=== PATIENT | male | born 1965 | race Caucasian/White ===

== ENCOUNTER 2019-10-06 13:17 | Emergency (ER) | payer MEDICAID, OTHER ==
--- NOTE | 2019-10-06 13:38 | ED Physician Documentation ---
History of Present Illness - Stated complaint Stated Complaint: MALE /SIDE PX - Chief complaint Chief Complaint: General - History obtained from History obtained from: Patient - History of Present Illness Timing: Last night - Additonal information Additional information: This is a 54-year-old man who presents with complaints that he is having pain in his lower back that begins across the glutes bilaterally and up into the flank bilaterally. He rates it about a 3-4 out of 10 but he has some rust colored urine and so became concerned that he might have a urinary tract infection. He is also concerned that this could be a reaction to TDF drugs that she is he is was prescribed for years for HIV that he contracted as a during a blood transfusion. He rates the pain at a 3-4 out of 10 says it is been there off and on for the past 12 to 14 hours, waxing and waning. He feels very fatigued but has been active running errands all morning long. Yesterday he did carry to 5 gallon buckets loaded with water 1 in each hand about 600 yards from the spigot up to his trailer. He woke up in the middle of the night with his kneecaps feeling very cold that subsequently resolved. Patient also has a history of kidney stones but said they do not feel anything like this. He has no nausea or vomiting and has had no fever. He was started on a statin about 2 months ago. He says he has multiple lipomas in his fat feels very "turgid" across his back and in the lower cervical region of his back is preventing his full range of motion around the neck. His arms and legs feel very heavy but he does not have any muscle other muscle aches. He also reports very poor dentition related to the TDF drugs his teeth are basically falling out and he is got gingivitis he is concerned that he will develop a worse infection related to that. Review of Systems Constitutional: denies: Fever Eyes: denies: Decreased vision Ears: denies: Ear pain Nose: denies: Congestion Throat: reports: Sore throat Cardiac: denies: Chest pain / pressure, Palpitations Respiratory: denies: Dyspnea, Cough GI: denies: Abdominal Pain, Nausea, Vomiting : reports: Other (Rust colored urine). denies: Dysuria Skin: reports: Rash (Starting back over the summer and he has not been able to get anybody at the [facility] to take it seriously. It does seem to be getting better) Musculoskeletal: reports: Back pain, Joint swelling (Has intermittent swelling of the joints of his hands). 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) Endocrine: reports: Other (He is taking metformin and has been off Victoza since March) Immunocompromised: reports: HIV/AIDS PD PAST MEDICAL HISTORY - Past Medical History Cardiovascular: None Endocrine/Autoimmune: Type 2 diabetes : Kidney stones Other Past Medical History: HIV+ - Past Surgical History Past Surgical History: No - Present Medications Home Medications: Ambulatory Orders Medication Instructions Recorded Confirmed Clindamycin Phosphate [Cleocin T] 60 ml TP BID PRN #1 bottle 10/14/13 Efavirenz [Sustiva] 600 mg PO DAILY 10/14/13 10/14/13 Emtricitabine/Tenofovir [Truvada 1 each PO DAILY 10/14/13 10/14/13 200 mg-300 mg Tablet] Emtricitabine/Tenofovir [Truvada 1 each PO DAILY #30 tablet 10/14/13 200 mg-300 mg Tablet] Hydrocodone/Acetaminophen 1 - 2 each PO Q6H PRN #10 tablet 10/06/19 [Hydrocodon-Acetaminophen 5-325] Ondansetron Odt [Zofran] 4 mg TL Q6H PRN #10 tablet 10/06/19 - Allergies Allergies/Adverse Reactions: Allergies Allergy/AdvReac Type Severity Reaction Status Date / Time codeine Allergy Intermediate sleepy Verified 10/06/19 13:20 NSAIDS (Non-Steroidal AdvReac Intermediate Rash Verified 10/06/19 13:20 Anti-Inflamma Penicillins AdvReac Intermediate Rash Verified 10/06/19 13:20 - Social History Does the pt smoke?: No Smoking Status: Never smoker Does the pt drink ETOH?: No Does the pt have substance abuse?: No - Immunizations Immunizations are current?: Yes PD ED PE NORMAL - Vitals Vital signs reviewed: Yes - General General: Alert and oriented X 3, No acute distress, Well developed/nourished, Other (He looks like he does not feel well. He is clearly frustrated and seems on the brink of tears several times during our conversation.) - HEENT HEENT: PERRL, Moist mucous membranes, Other (No scleral icterus). No: Dentition benign (His dentition is very poor with multiple caps on his teeth but also broken teeth and inflammation of the gums. No jaw swelling and no pain with palpation along the mandible.) - Neck Neck: No adenopathy - Cardiac Cardiac: RRR, No murmur, Strong equal pulses - Respiratory Respiratory: No respiratory distress, Clear bilaterally - Abdomen Abdomen: Normal bowel sounds, Soft, No organomegaly, Other (He is obese) - Derm Derm: Normal color, Other (Multiple small erythematous to purple discolored lesions scattered over his arms and the back of his hands some of these actually have small scabs on the top of the surface of them.). No: Warm and dry (He feels a little slightly clammy) - Extremities Extremities: No edema, Other (No swelling of the joints noted in his hands) - Neuro Neuro: Alert and oriented X 3, solar technician 2-12 intact, No motor deficit, No sensory deficit, Normal speech - Psych Psych: Other (He is on the brink of tears several times.) Results - Vitals Vitals: Vital Signs - 24 hr 10/06/19 10/06/19 10/06/19 13:21 15:29 17:35 Temperature 37.1 C Heart Rate 100 88 87 Respiratory 18 20 18 Rate Blood Pressure 125/61 120/71 120/72 O2 Saturation 94 95 98 Oxygen O2 Source Room air - Labs Labs: Laboratory Tests 10/06/19 10/06/19 10/06/19 13:30 14:44 14:44 WBC 8.8 RBC 5.08 Hgb 15.2 Hct 45.9 MCV 90.4 MCH 29.9 MCHC 33.1 RDW 13.6 Plt Count 217 MPV 8.4 Neut # (Auto) 4.9 Lymph # (Auto) 2.8 [place] # (Auto) 0.7 Eos # (Auto) 0.4 Baso # (Auto) 0.1 Absolute Nucleated RBC 0.00 Nucleated RBC % 0.0 Sodium 138 Potassium 3.6 Chloride 104 Carbon Dioxide 24 Anion Gap 10.0 BUN 13 Creatinine 0.9 Estimated GFR (MDRD) 88 L Glucose 186 H Calcium 8.7 Total Bilirubin 0.7 AST 27 ALT 24 Alkaline Phosphatase 79 Total Creatine Kinase 147 Total Protein 7.3 Albumin 4.3 Globulin 3.0 Albumin/Globulin Ratio 1.4 Lipase 31 Urine Color BROWN Urine Clarity CLOUDY Urine pH 5.5 Ur Specific Sullivan >=1.030 H Urine Protein 30 H Urine Glucose (UA) NEGATIVE Urine Ketones NEGATIVE Urine Occult Blood LARGE H Urine Nitrite NEGATIVE Urine Bilirubin NEGATIVE Urine Urobilinogen 0.2 (NORMAL) Ur Leukocyte Esterase NEGATIVE Urine RBC TNTC H Urine WBC 0-3 Ur Squamous Epith Cells NONE SEEN Urine Crystals 11-25 Ca Oxalate Amorphous Sediment Moderate Urine Bacteria None Seen Ur Microscopic Review INDICATED Urine Culture Comments NOT INDICATED - Rads (name of study) CT abd/pelvis Radiology: See rad report (5x7mm stone prox L ureter with min hydronephrosis) PD MEDICAL DECISION MAKING - ED course Complexity details: reviewed results, re-evaluated patient, d/w patient ED course: Patient had an IV started he said he was allergic to nonsteroidals so we cannot use Toradol and he drove himself here so I cannot give him narcotics. Given a liter of fluids that his pain was down to about a 2 out of 10. His renal functions normal white blood cell counts normal. His urinalysis had too numerous to count red blood cells. CT scan was ordered and he has a 5 x 7 mm stone in the left proximal ureter with minimal hydroureter nephrosis. Will attempt to contact urology for referral. Outpatient management is likely appropriate with minimal pain and not significant hydronephrosis. I was unable to expeditiously contact urologist so I have talked to the patient and he is agreeable for discharge with #[facility]. He will be provided a prescription for hydrocodone and Zofran. He has ibuprofen at home and even though it causes a rash it seems to work well for his pain and he says that he takes it sporadically for his tooth pain anyway. He still declined Toradol here stating that the pain was much better after the IV fluids. He should drink lots of water and contact [facility] after the holiday. Return if his symptoms are worsening with intractable pain, fever, vomiting or not urinating. Departure - Departure Disposition: 01 Home, Self Care Clinical Impression: Left ureteral stone Back pain Qualifiers: Back pain location: low back pain Chronicity: acute Back pain laterality: bilateral Sciatica presence: without sciatica Qualified Code(s): M54.5 - Low back pain Condition: Good Instructions: ED Stone Renal W Colic Follow-Up: [facility] [Provider Group] Prescriptions: Hydrocodone/Acetaminophen [Hydrocodon-Acetaminophen 5-325] 1 - 2 each PO Q6H PRN #10 tablet PRN Reason: pain Ondansetron Odt [Zofran] 4 mg TL Q6H PRN #10 tablet PRN Reason: Nausea / Vomiting Comments: Take the ibuprofen if it does not cause a rash at home up to 4 tablets every 8 hours with food. Make sure that you are drinking plenty of water. Take the Zofran if needed for nausea or vomiting. Have given you a prescription for a few hydrocodone tablets to use if needed for additional pain. This could make you sleepy so do not drive or operate machinery. You have the number for the [facility] and should contact them after the 's holiday for follow-up. Return for reevaluation if you have increasing pain, develop fever, are not urinating or are vomiting and cannot keep anything down.
[2019-10-06 13:41] LABS: BILIRUBIN,URINE NEGATIVE (NEGATIVE); GLUCOSE, URINE (UA) NEGATIVE (NEGATIVE); KETONES,URINE (UA) NEGATIVE (NEGATIVE); LEUKOCYTE ESTERASE, URINE NEGATIVE (NEGATIVE); NITRITE,URINE NEGATIVE (NEGATIVE); OCCULT BLOOD,URINE LARGE (NEGATIVE); PH,URINE 5.5 PH (5.0-7.5); PROTEIN,URINE 30 mg/dL (NEGATIVE); UROBILINOGEN,URINE 0.2 (NORMAL) E.U./dL (NORMAL)
[2019-10-06 13:43] LABS: CLARITY,URINE CLOUDY (CLEAR)
[2019-10-06 13:53] LABS: AMORPHOUS SEDIMENT,UR Moderate /LPF; BACTERIA,URINE None Seen /HPF (None Seen); CRYSTALS,URINE 11-25 Ca Oxalate /LPF; RBC,URINE TNTC /HPF (0-5); SQUAMOUS EPITHELIAL CELL,UR NONE SEEN (<= Few)
[2019-10-06] MEDS ORDERED: SODIUM CHLORIDE 0.9% 1,000 ML IV ONE (14:16)
[2019-10-06 14:48] LABS: BASOPHILS # (AUTO) 0.1 10^3/uL (0.0-0.1); BASOPHILS % (AUTO) 0.6 %; EOSINOPHILS # (AUTO) 0.4 10^3/uL (0.0-0.7); EOSINOPHILS % (AUTO) 4.1 %; HGB - HEMOGLOBIN 15.2 g/dL (14.0-18.0); LYMPHOCYTES # (AUTO) 2.8 10^3/uL (1.5-3.5); LYMPHOCYTES % (AUTO) 31.9 %; MEAN CORPUSCULAR HEMOGLOBIN 29.9 pg (27.0-31.0); MEAN CORPUSCULAR HGB CONC 33.1 g/dL (32.0-36.0); MEAN CORPUSCULAR VOLUME 90.4 fL (80.0-94.0); MEAN PLATELET VOLUME 8.4 fL (7.4-11.4); MONOCYTES # (AUTO) 0.7 10^3/uL (0.0-1.0); MONOCYTES % (AUTO) 7.5 %; NEUTROPHILS # (AUTO) 4.9 10^3/uL (1.5-6.6); NEUTROPHILS % (AUTO) 55.4 %; PLT - PLATELET COUNT 217 10^3/uL (130-450); RED BLOOD COUNT 5.08 10^6/uL (4.70-6.10); RED CELL DISTRIBUTION WIDTH 13.6 % (12.0-15.0); WHITE BLOOD COUNT 8.8 x10^3/uL (4.8-10.8)
[2019-10-06 15:00] LABS: ALBUMIN 4.3 g/dL (3.2-5.5); ALBUMIN/GLOBULIN RATIO 1.4 (1.0-2.2); BILIRUBIN,TOTAL 0.7 mg/dL (0.2-1.0); CALCIUM 8.7 mg/dL (8.5-10.3); CREATININE 0.9 mg/dL (0.6-1.2); TOTAL PROTEIN 7.3 g/dL (6.7-8.2)
--- NOTE | 2019-10-06 15:59 | CT Report ---
Reason: hematuria; back pain Procedure Date: 10/06/2019 Accession Number: [id number] / [id number] Procedure: CT - Abdomen/Pelvis WO CPT Code: Final Report FULL RESULT: EXAM: CT ABDOMEN AND PELVIS (CT KUB) EXAM DATE: 10/06/2019 03:37 PM. CLINICAL HISTORY: Hematuria; back pain. COMPARISONS: None. TECHNIQUE: Routine axial helical CT imaging was performed through the abdomen and pelvis without IV contrast. Reconstructions: Coronal and sagittal. In accordance with CT protocol optimization, one or more of the following dose reduction techniques were utilized for this exam: automated exposure control, adjustment of mA and/or KV based on patient size, or use of iterative reconstructive technique. FINDINGS: Lung Bases: Unremarkable. Right Kidney/Ureter: No stones, hydronephrosis, or hydroureter. No perinephric fat stranding. Left Kidney/Ureter: At the ureteropelvic junction is a 0.5 cm caliber 0.7 cm long calculus with no to minimal upstream hydroureteronephrosis. Compared to the contralateral side there is no significantly increased perinephric fat stranding associated with the finding. Other Solid Organs: Noncontrast images of the solid organs are grossly unremarkable. Gallbladder/Bile Ducts: Unremarkable. Peritoneal Cavity: No free fluid, free air or henrik adenopathy. Bowel is grossly unremarkable. Pelvic Organs: No bladder stones or wall thickening. Noncontrast images of the visualized pelvic organs are unremarkable. Vasculature: Unremarkable. Other: None. 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 RADIA
[2019-10-06 17:35] VITALS: BP 120/72
== END 2019-10-06 17:40 | disposition home or self-care (01) ==
LOC: ED 13:17
DX: N13.2 Hydronephrosis with renal and ureteral calculous obstruction (principal); M54.5 Low back pain; B20 Human immunodeficiency virus [HIV] disease; G62.0 Drug-induced polyneuropathy; E11.9 Type 2 diabetes mellitus without complications; Z79.84 Long term (current) use of oral hypoglycemic drugs
CPT/HCPCS: 36415; 74176; 80053; 81001; 81003; 82550; 83690; 85025; 87086; 96360; 99284

== ENCOUNTER 2019-10-29 12:12 | Outpatient (CLI) | payer OTHER ==
[2019-10-29 12:40] LABS: BASOPHILS % (AUTO) 0.4 %; EOSINOPHILS # (AUTO) 0.7 10^3/uL (0.0-0.7); EOSINOPHILS % (AUTO) 7.1 %; HGB - HEMOGLOBIN 16.2 g/dL (14.0-18.0); LYMPHOCYTES # (AUTO) 2.8 10^3/uL (1.5-3.5); MEAN CORPUSCULAR HEMOGLOBIN 29.7 pg (27.0-31.0); MEAN CORPUSCULAR HGB CONC 32.9 g/dL (32.0-36.0); MEAN CORPUSCULAR VOLUME 90.3 fL (80.0-94.0); MEAN PLATELET VOLUME 8.8 fL (7.4-11.4); MONOCYTES # (AUTO) 0.8 10^3/uL (0.0-1.0); MONOCYTES % (AUTO) 7.8 %; NEUTROPHILS # (AUTO) 5.4 10^3/uL (1.5-6.6); NEUTROPHILS % (AUTO) 55.2 %; PLT - PLATELET COUNT 237 10^3/uL (130-450); RED BLOOD COUNT 5.45 10^6/uL (4.70-6.10); RED CELL DISTRIBUTION WIDTH 13.8 % (12.0-15.0); WHITE BLOOD COUNT 9.8 x10^3/uL (4.8-10.8)
[2019-10-29 13:11] LABS: ALBUMIN 4.4 g/dL (3.2-5.5); ALBUMIN/GLOBULIN RATIO 1.3 (1.0-2.2); BILIRUBIN,TOTAL 0.6 mg/dL (0.2-1.0); CALCIUM 9.4 mg/dL (8.5-10.3); TOTAL PROTEIN 7.7 g/dL (6.7-8.2)
== END 2019-10-29 12:13 | disposition home or self-care (01) ==
LOC: LAB 12:12
PROVIDERS: ATTEND Physician Assistant Medical
DX: Z82.1 Family history of blindness and visual loss (principal)
CPT/HCPCS: 36415; 80053; 85025

== ENCOUNTER 2019-12-05 10:49 | Outpatient (CLI) | payer OTHER ==
--- NOTE | 2019-12-07 01:47 | CT Report ---
Reason: KIDNEY STONE Procedure Date: 12/05/2019 Accession Number: [id number] / [id number] Procedure: CT - Abdomen/Pelvis WO CPT Code: Final Report FULL RESULT: EXAM: CT ABDOMEN AND PELVIS (CT KUB) EXAM DATE: 12/05/2019 11:08 AM. CLINICAL HISTORY: Left lower back pain. History of renal calculi. Assess for kidney stone. COMPARISONS: CT 10/06/2019 3:36 PM. TECHNIQUE: Routine axial helical CT imaging was performed through the abdomen and pelvis without IV contrast. Reconstructions: Coronal and sagittal. In accordance with CT protocol optimization, one or more of the following dose reduction techniques were utilized for this exam: automated exposure control, adjustment of mA and/or KV based on patient size, or use of iterative reconstructive technique. FINDINGS: Lung Bases: Unremarkable. Right Kidney/Ureter: Nonobstructive 2 mm right lower pole renal calculus. No hydronephrosis or ureteral calculus. No perinephric fat stranding. Left Kidney/Ureter: No calculi, hydronephrosis, or hydroureter. Interval passage of previously seen left ureteral calculus. No perinephric fat stranding. Other Solid Organs: Noncontrast images of the solid organs are grossly unremarkable. Gallbladder/Bile Ducts: Tiny gallstone. No evidence of acute cholecystitis. No biliary dilation. Peritoneal Cavity: No free fluid, free air or henrik adenopathy. Bowel is grossly unremarkable. Appendix is normal. Pelvic Organs: No bladder stones or wall thickening. Noncontrast images of the visualized pelvic organs are unremarkable. Vasculature: Unremarkable noncontrast CT. Other: Stable osseous structures. No acute bony findings. IMPRESSION: 1. Punctate nonobstructive right lower pole renal calculus. No hydronephrosis or ureteral calculus. Interval passage of previous left ureteral calculus. 2. Tiny gallstone. No evidence of acute cholecystitis. RADIA
== END 2019-12-05 10:50 | disposition home or self-care (01) ==
LOC: DI 10:49
PROVIDERS: ATTEND Student in an Organized Health Care Education/Training Program
DX: N20.0 Calculus of kidney (principal); K80.20 Calculus of gallbladder without cholecystitis without obstruction
CPT/HCPCS: 74176

== ENCOUNTER 2021-03-07 22:18 | Emergency (ER) | payer OTHER ==
--- OUTSIDE RECORDS SUMMARY | 2021-03-07 22:22 | EXTERNAL MEDICAL SUMMARY RPT | Continuity of Care Document ---
:1965 Demographics Phone Unavailable Preferred Language Unknown Marital Status Unknown Sabianism Affiliation Unknown Race Unknown Ethnic Group Unknown Author Organization [facility] Address [address] [place] [address] Phone Care Team Providers Name Role Phone PA-C Unavailable Unavailable Allergies Encounters Medications date description facility 20210113 [facility] [id number] [facility] [id number] [id number] TABS [facility] 20210113 [facility] Problems date description facility 20210113 Unspecified gingival and periodontal [facility] disease [facility] [id number] Total score? [facility] [phone] Tobacco use and exposure [facility] [phone] Periapical abscess without sinus [facility] [phone] Infection of tooth [facility] [phone] Health-related behavior [facility] [phone] Gingival disease [facility] [phone] Former smoker [facility] 20210113 Exercise [facility] 20210113 Disorder of gingiva and edentulous [facility] & alveolar ridge, unspecified Ancillary Se rvices Cristian [phone] Details of drug misuse behavior [facility] [phone] Alcohol use [facility] [phone] Acute apical periodontitis of pulpal [facility] Results Vital Signs date measurement value source [id number] weight_standard 270 lb [id number] weight_metric 122.47 kg [id number] temperature_standard 99.1 F 20210113 temperature_metric 37.28 C 20210113 respiration_rate 16 /min 20210113 height_standard 71.5 in 20210113 height_metric 181.61 cm 20210113 heart_rate 92 /min 20210113 BP_systolic 128 mm[Hg] 20210113 BP_diastolic 76 mm[Hg] 20210113 BMI 37.27 kg/m2
--- OUTSIDE RECORDS SUMMARY | 2021-03-07 22:53 | EXTERNAL MEDICAL SUMMARY RPT | Continuity of Care Document ---
:1965 Demographics Phone Unavailable Preferred Language Unknown Marital Status Unknown Denominational Affiliation Unknown Race Unknown Ethnic Group Unknown Author Organization [facility] Address [address] [place] [address] Phone Care Team Providers Name Role Phone PA-C Unavailable Unavailable Allergies Encounters Medications date description facility 20210113 [facility] [phone] [facility] 20210113 [id number] TABS [facility] 20210113 [facility] Problems date description facility 20210113 Unspecified gingival and periodontal [facility] ad[facility] [id number] Total score? [facility] adan [phone] Tobacco use and exposure [facility] adan [phone] Periapical abscess without sinus [facility] ad[facility] [phone] Infection of tooth [facility] [phone] Health-related behavior [facility] [phone] Gingival disease [facility] [phone] Former smoker [facility] 20210113 Exercise [facility] adan 20210113 Disorder of gingiva and edentulous [facility] & alveolar ridge, unspecified Ancillary Se rvices Cristian [phone] Details of drug misuse behavior [facility] [phone] Alcohol use [facility] [phone] Acute apical periodontitis of pulpal [facility] Results Vital Signs date measurement value source [id number] weight_standard 270 lb [id number] weight_metric 122.47 kg 76199942 temperature_standard 99.1 F 20210113 temperature_metric 37.28 C 20210113 respiration_rate 16 /min 20210113 height_standard 71.5 in 20210113 height_metric 181.61 cm 20210113 heart_rate 92 /min 20210113 BP_systolic 128 mm[Hg] 20210113 BP_diastolic 76 mm[Hg] 20210113 BMI 37.27 kg/m2
[2021-03-08] MEDS ORDERED: KETOROLAC 30 MG/ML VIAL IM STA (00:03)
[2021-03-08] MEDS ORDERED: TETANUS/DIPHTHERIA/PERTUSSIS 0.5 ML SYRINGE IM ONE (00:03)
[2021-03-08] MEDS ORDERED: BACITRACIN ZINC OINT 1 PACKET TOP STA (00:03)
[2021-03-08] MEDS ORDERED: AMOX/CLAV 875 MG/125 MG TABLET PO STA (00:04)
--- NOTE | 2021-03-08 00:06 | ED Physician Documentation ---
History of Present Illness - Stated complaint Stated Complaint: RT HAND DOG BITE - Chief complaint Chief Complaint: Laceration - History obtained from History obtained from: Patient - Additonal information Additional information: 55-year-old man presents status post dog bite to the right hand occurring today. Is able to confirm that the dog is vaccinated. Unsure of his last tetanus. Review of Systems Skin: reports: Bite / sting PD PAST MEDICAL HISTORY - Past Medical History Past Medical History: Yes Cardiovascular: None Endocrine/Autoimmune: Type 2 diabetes : Kidney stones - Past Surgical History Past Surgical History: No - Present Medications Home Medications: Ambulatory Orders Medication Instructions Recorded Confirmed Efavirenz [Sustiva] 600 mg PO DAILY 10/14/13 03/07/21 Atorvastatin [Lipitor] 20 mg PO DAILY 03/07/21 03/07/21 Bictegrav/Emtricit/Tenofov Ala 1 tab PO DAILY 03/07/21 03/07/21 [Biktarvy 50-200-25 mg Tablet] Clindamycin Phosphate [Cleocin T] 60 ml TP BID PRN 03/07/21 03/07/21 Sertraline [Zoloft] 25 mg PO DAILY 03/07/21 03/07/21 buPROPion [Wellbutrin Sr] 100 mg PO DAILY 03/07/21 03/07/21 metFORMIN [Glucophage] 500 mg PO TID 03/07/21 03/07/21 Amox/Clav 875/125 [Augmentin 1 tablet PO Q12H 10 Days #20 tablet 03/08/21 875/125 Tab] Ketorolac [Toradol] 10 mg PO Q6H PRN #15 tablet 03/08/21 - Allergies Allergies/Adverse Reactions: Allergies Allergy/AdvReac Type Severity Reaction Status Date / Time codeine Allergy Intermediate sleepy Verified 10/06/19 13:20 NSAIDS (Non-Steroidal AdvReac Intermediate Rash Verified 10/06/19 13:20 Anti-Inflamma Penicillins AdvReac Intermediate Rash Verified 10/06/19 13:20 - Social History Does the pt smoke?: No Smoking Status: Never smoker Does the pt drink ETOH?: No Does the pt have substance abuse?: No - Immunizations Immunizations are current?: No Immunizations: TDAP >10years/unknown - POLST Patient has POLST: No PD ED PE NORMAL - Vitals Vital signs reviewed: Yes - General General: Alert and oriented X 3, No acute distress, Well developed/nourished - HEENT HEENT: Atraumatic, PERRL, EOMI - Derm Derm: Normal color, Warm and dry, Other (7 puncture hooper to the right dorsum and ventral hand. Range of motion intact 2+ radial pulse. Normal sensation and capillary refill. No tendon involvement.) Results - Vitals Vitals: Vital Signs - 24 hr 03/07/21 03/07/21 03/08/21 22:39 23:33 00:19 Temperature 36.9 C 36.9 C 36.9 C Heart Rate 110 H 109 H 94 Respiratory 18 18 18 Rate Blood Pressure 132/77 H 133/72 H 137/73 H O2 Saturation 95 96 97 Oxygen O2 Source Room air PD MEDICAL DECISION MAKING - ED course ED course: 55-year-old man presented status post dog bite. Antibiotics prescribed. I discussed with him in regards to his penicillin allergy and he states that he usually can tolerate amoxicillin fine, therefore I will give him a regular prescription. Strict return precautions given. Patient should follow-up for wound check with his primary doctor. Departure - Departure Disposition: 01 Home, Self Care Clinical Impression: Dog bite Condition: Good Instructions: ED Wound Care Prescriptions: Amox/Clav 875/125 [Augmentin 875/125 Tab] 1 tablet PO Q12H 10 Days #20 tablet Ketorolac [Toradol] 10 mg PO Q6H PRN #15 tablet PRN Reason: Pain Comments: You were seen in the emergency department for dog bite. It is very important that you take your antibiotics as prescribed and do not miss a dose, especially early on. Monitor for any signs of infection and if it looks like it is getting worse then come back immediately. Change the dressing at least once daily and try to keep the hand elevated to reduce swelling. Apply ice for 20 minutes every hour as needed to reduce swelling. Discharge Date/Time: 03/08/21 00:59
[2021-03-08 00:20] VITALS: BP 137/73
== END 2021-03-08 00:59 | disposition home or self-care (01) ==
LOC: ED 22:18
DX: S61.451A Open bite of right hand, initial encounter (principal); W54.0XXA Bitten by dog, initial encounter
CPT/HCPCS: 90471; 90715; 96372; 99283; A9270

== ENCOUNTER 2021-10-19 11:13 | Emergency (ER) | payer OTHER ==
[2021-10-19 11:47] LABS: BASOPHILS # (AUTO) 0.1 10^3/uL (0.0-0.1); BASOPHILS % (AUTO) 0.5 %; EOSINOPHILS # (AUTO) 0.3 10^3/uL (0.0-0.7); LYMPHOCYTES # (AUTO) 3.2 10^3/uL (1.5-3.5); LYMPHOCYTES % (AUTO) 35.4 %; MEAN CORPUSCULAR HEMOGLOBIN 29.4 pg (27.0-31.0); MEAN CORPUSCULAR VOLUME 86.4 fL (80.0-94.0); MEAN PLATELET VOLUME 8.9 fL (7.4-11.4); MONOCYTES # (AUTO) 0.7 10^3/uL (0.0-1.0); MONOCYTES % (AUTO) 7.1 %; NEUTROPHILS # (AUTO) 4.9 10^3/uL (1.5-6.6); NEUTROPHILS % (AUTO) 53.8 %; PLT - PLATELET COUNT 212 10^3/uL (130-450); RED BLOOD COUNT 5.44 10^6/uL (4.70-6.10); RED CELL DISTRIBUTION WIDTH 13.2 % (12.0-15.0); WHITE BLOOD COUNT 9.2 x10^3/uL (4.8-10.8)
--- NOTE | 2021-10-19 12:00 | ED Physician Documentation ---
History of Present Illness - Stated complaint Stated Complaint: RT FOOT WOUND - Chief complaint Chief Complaint: Ext Problem - Additonal information Additional information: 56-year-old male who carries a history of HIV disease as well as diabetes presents to the emergency department for evaluation of a wound on the top of his right foot. On 02 October 2021 he developed an abrasion after scraping it under a metal bracket for a propane tank. Initially he did not think much of the wound but over time and ulceration has formed. He was seen at a local walk-in clinic who advised him to come to the ER for evaluation of possible osteomyelitis. He denies any fevers, no foot swelling. He has no previous history of sores on his feet. He has not received any antibiotics. With regards to the patient's HIV, it is well controlled on Biktarvy. He reports an undetectable viral load. Patient is insulin dependent typically reports blood sugars between 150 and 300. He is also reporting to this provider that recently he has begun to be told he has problems with his liver and kidney function. Review of Systems Constitutional: denies: Chills Eyes: reports: Reviewed and negative Ears: reports: Reviewed and negative Nose: reports: Reviewed and negative Throat: reports: Reviewed and negative Cardiac: reports: Reviewed and negative Respiratory: reports: Reviewed and negative GI: reports: Reviewed and negative : reports: Reviewed and negative Skin: reports: Lesions Musculoskeletal: reports: Reviewed and negative PD PAST MEDICAL HISTORY - Past Medical History Cardiovascular: None Endocrine/Autoimmune: Type 2 diabetes : Kidney stones - Past Surgical History Past Surgical History: No - Present Medications Home Medications: Ambulatory Orders Medication Instructions Recorded Confirmed Efavirenz [Sustiva] 600 mg PO DAILY 10/14/13 03/07/21 Atorvastatin [Lipitor] 20 mg PO DAILY 03/07/21 03/07/21 Bictegrav/Emtricit/Tenofov Ala 1 tab PO DAILY 03/07/21 03/07/21 [Biktarvy 50-200-25 mg Tablet] Clindamycin Phosphate [Cleocin T] 60 ml TP BID PRN 03/07/21 03/07/21 Sertraline [Zoloft] 25 mg PO DAILY 03/07/21 03/07/21 buPROPion [Wellbutrin Sr] 100 mg PO DAILY 03/07/21 03/07/21 metFORMIN [Glucophage] 500 mg PO TID 03/07/21 03/07/21 Amox/Clav 875/125 [Augmentin 1 tablet PO Q12H 10 Days #20 tablet 03/08/21 875/125 Tab] Ketorolac [Toradol] 10 mg PO Q6H PRN #15 tablet 03/08/21 Mupirocin 2% Oint [Bactroban 2% 1 applic TOP BID #22 gm 10/19/21 Oint] cephALEXin [Keflex] 500 mg PO Q6H #28 cap 10/19/21 - Allergies Allergies/Adverse Reactions: Allergies Allergy/AdvReac Type Severity Reaction Status Date / Time codeine Allergy Intermediate sleepy Verified 10/19/21 11:30 NSAIDS (Non-Steroidal AdvReac Intermediate Rash Verified 10/19/21 11:30 Anti-Inflamma Penicillins AdvReac Intermediate Rash Verified 10/19/21 11:30 - Social History Does the pt smoke?: No Smoking Status: Never smoker Does the pt drink ETOH?: No Does the pt have substance abuse?: No - Immunizations Immunizations are current?: No Immunizations: TDAP >10years/unknown - POLST Patient has POLST: No PD ED PE EXPANDED - General General: Alert, No acute distress, Well developed/nourished - Neck Neck: Supple w/out meningeal sx. No: Adenopathy - Cardiac Cardiac: Regular Rate, Radial strong equal, Pedal strong equal, Cap refill < 2 sec. No: Murmur Present - Respiratory Respiratory: Clear to ausultation tanner. No: Distress, Labored - Abdomen Abdomen: Normal Bowel sounds. No: Tender to palpation - Derm Derm: Other (Irregularly shaped ulceration over the MCP joint of the right great toe measuring 2 cm in greatest diameter. Yellow eschar overlying the wound bed. No surrounding erythema. Scant amount of serous drainage. Normal range of motion of the great toe at the MCP joint. Minimal to pain. 2+ DP pulse) - Extremities Extremities: Normal, Right foot (urrigeular ulceration over MCP joint right great toe. 2+ DP pulse. brisk cap refill. no swelling or surrounding erythema) Results - Vitals Vitals: Vital Signs - 24 hr 10/19/21 10/19/21 11:25 12:11 Temperature 37.7 C 37.0 C Heart Rate 96 89 Respiratory 19 18 Rate Blood Pressure 149/94 H 127/80 O2 Saturation 99 96 Oxygen O2 Source Room air - Labs Labs: Laboratory Tests 10/19/21 10/19/21 11:40 11:40 WBC 9.2 RBC 5.44 Hgb 16.0 Hct 47.0 MCV 86.4 MCH 29.4 MCHC 34.0 RDW 13.2 Plt Count 212 MPV 8.9 Neut # (Auto) 4.9 Lymph # (Auto) 3.2 Carson # (Auto) 0.7 Eos # (Auto) 0.3 Baso # (Auto) 0.1 Absolute Nucleated RBC 0.00 Nucleated RBC % 0.0 Sodium 142 Potassium 4.0 Chloride 103 Carbon Dioxide 27 Anion Gap 12.0 BUN 20 Creatinine 1.0 Estimated GFR (MDRD) 77 L Glucose 218 H Calcium 9.4 Total Bilirubin 0.7 AST 25 ALT 29 Alkaline Phosphatase 86 C-Reactive Protein 1.0 Total Protein 7.4 Albumin 4.1 Globulin 3.3 Albumin/Globulin Ratio 1.2 Lipase 29 - Rads (name of study) right foot Radiology: Final report received (No visualized erosions.) PD MEDICAL DECISION MAKING - ED course Complexity details: reviewed results, re-evaluated patient, d/w patient ED course: 56-year-old male presents emergency department with a ulceration on the dorsum of his right foot over the MCP joint that developed after scraping it on a piece of metal 10/02/2021. He has been applying Silvadene to the wound and has a yellow eschar. Minimal surrounding erythema. X-ray does not show findings of bony erosion. Screening labs showed no leukocytosis and his CRP is not elevated. My suspicion for osteomyelitis is lower at this time, though he is certainly at risk for development of osteomyelitis. Patient however will require referral to wound therapy and/or podiatry. This wa s discussed with him at length. I am prescribing a short course of cephalexin. I am also recommending that he soak the ulcer in a Betadine solution for 10 minutes once a day, gently cleanse it with a washcloth and apply mupirocin ointment. Emergent return precautions were discussed for failure of the wound to heal or worsening symptoms. Departure - Departure Disposition: 01 Home, Self Care Clinical Impression: Diabetic foot ulcer Qualifiers: Diabetic foot ulcer location: toe Diabetes mellitus type: type 2 Laterality: right Non-pressure ulcer stage: with fat layer exposed Qualified Code(s): E11.621 - Type 2 diabetes mellitus with foot ulcer; L97.512 - Non-pressure chronic ulcer of other part of right foot with fat layer exposed Condition: Stable Record reviewed to determine appropriate education?: Yes Instructions: Diabetic Foot Ulcer Dc Prescriptions: Mupirocin 2% Oint [Bactroban 2% Oint] 1 applic TOP BID #22 gm cephALEXin [Keflex] 500 mg PO Q6H #28 cap Comments: Marcelo you are seen in the emergency department today for an ulceration on the top of your right foot that has failed to heal over the last few weeks. The x-ray of your foot does not show any bony erosions. Your screening blood work is also fairly unremarkable with the exception of an elevated blood glucose. The ulcer that you have we will take weeks if not months to heal however. Is very important you discuss this ED visit with your primary care doctor as you will most likely need a referral to wound therapy and/or a claims counsel. I would like you to soak your foot in a Betadine solution for 10 minutes once a day. Then gently cleanse your ulcer with a clean washcloth and apply muporicin ointment over the wound and a simple bandage. I am prescribing a short course of antibiotics. If despite taking the antibiotics and this wound care it is possible that the infection could spread into the bone which may in the future require a foot/toe amputation. Your prescriptions have been sent electronically to the [facility] in [place]
[2021-10-19 12:03] LABS: ALBUMIN 4.1 g/dL (3.2-5.5); ALBUMIN/GLOBULIN RATIO 1.2 (1.0-2.2); BILIRUBIN,TOTAL 0.7 mg/dL (0.2-1.0); CALCIUM 9.4 mg/dL (8.5-10.3); TOTAL PROTEIN 7.4 g/dL (6.7-8.2)
--- NOTE | 2021-10-19 12:11 | XRAY Report ---
PROCEDURE: Foot 2 View RT INDICATIONS: ? great toe osteomyelitis TECHNIQUE: 2 views of the foot were acquired. COMPARISON: None FINDINGS: Bones: No fractures or dislocations. No suspicious bony lesions. Soft tissues: No tibiotalar joint effusion. Achilles tendon appears normal. IMPRESSION: No visualized erosions. However, if concern persists for osteomyelitis, MRI is recommended as there i s greater sensitivity for early osteomyelitic osseous change compared to x-ray. Reviewed by: Marina Santos MD on 10/19/2021 12:10 PM [facility] Approved by: Marina Santos MD on 10/19/2021 12:10 PM [facility] Station ID: [id number]
[2021-10-19 12:13] VITALS: BP 127/80
== END 2021-10-19 12:47 | disposition home or self-care (01) ==
LOC: ED 11:13
DX: E11.621 Type 2 diabetes mellitus with foot ulcer (principal); L97.512 Non-pressure chronic ulcer of other part of right foot with fat layer exposed; E11.65 Type 2 diabetes mellitus with hyperglycemia; Z79.4 Long term (current) use of insulin; Z79.84 Long term (current) use of oral hypoglycemic drugs; Z21 Asymptomatic human immunodeficiency virus [HIV] infection status
CPT/HCPCS: 36415; 80053; 83690; 85025; 86140; 99283; 99284

== ENCOUNTER 2021-10-26 16:51 | Emergency (ER) | payer OTHER ==
[2021-10-26 17:31] LABS: BASOPHILS # (AUTO) 0.1 10^3/uL (0.0-0.1); BASOPHILS % (AUTO) 0.9 %; EOSINOPHILS # (AUTO) 0.5 10^3/uL (0.0-0.7); EOSINOPHILS % (AUTO) 5.3 %; HCT - HEMATOCRIT 45.8 % (42.0-52.0); HGB - HEMOGLOBIN 15.5 g/dL (14.0-18.0); LYMPHOCYTES # (AUTO) 3.2 10^3/uL (1.5-3.5); LYMPHOCYTES % (AUTO) 36.5 %; MEAN CORPUSCULAR HEMOGLOBIN 29.2 pg (27.0-31.0); MEAN CORPUSCULAR HGB CONC 33.8 g/dL (32.0-36.0); MEAN CORPUSCULAR VOLUME 86.4 fL (80.0-94.0); MEAN PLATELET VOLUME 8.8 fL (7.4-11.4); MONOCYTES # (AUTO) 0.7 10^3/uL (0.0-1.0); MONOCYTES % (AUTO) 7.7 %; NEUTROPHILS # (AUTO) 4.3 10^3/uL (1.5-6.6); NEUTROPHILS % (AUTO) 49.1 %; PLT - PLATELET COUNT 238 10^3/uL (130-450); RED CELL DISTRIBUTION WIDTH 12.9 % (12.0-15.0); WHITE BLOOD COUNT 8.8 x10^3/uL (4.8-10.8)
[2021-10-26 17:41] LABS: ALBUMIN 4.1 g/dL (3.2-5.5); ALBUMIN/GLOBULIN RATIO 1.3 (1.0-2.2); BILIRUBIN,TOTAL 0.5 mg/dL (0.2-1.0); CALCIUM 8.7 mg/dL (8.5-10.3); CREATININE 1.1 mg/dL (0.6-1.2); POTASSIUM 3.9 mmol/L (3.5-5.0); TOTAL PROTEIN 7.3 g/dL (6.7-8.2)
[2021-10-26 18:01] LABS: PT - PROTHROMBIN TIME 10.7 secs (9.9-12.6)
--- NOTE | 2021-10-26 19:29 | ED Physician Documentation ---
PD HPI GI BLEED - Stated complaint Stated Complaint: CLOTTED BLOOD IN BM, RT FOOT TRAUMA, DI MEILLITUS - Chief complaint Chief Complaint: Abd Pain - History obtained from History obtained from: Patient - History of Present Illness Timing - onset: How many days ago (2) Timing - details: Abrupt onset, Intermittant Associated symptoms: Maroon stool. No: Vomiting, Coffee ground emesis, Hematemesis Contributing factors: Recent antibiotics, Diabetes. No: Anticoagulated Similar symptoms before: Has not had sx before Recently seen: Emergency Dept - Additional information Additional information: c/o 2 days of BRBPR with clots. He describes LLQ pain, mild and intermittent by his description (only elicited from ROS on my H+P). He was T+R from this ED a week ago for right foot pain with concern for osteomyelitis (unremarkble testing that night which included WBC, CRP, and foot xrays); he was prescribed keflex . [facility] and he was told to come to ED for the GIB concern. Review of Systems Unable to obtain: Unresponsive Constitutional: denies: Fever Cardiac: reports: Reviewed and negative Respiratory: reports: Reviewed and negative GI: denies: Abdominal Pain, Vomiting, Diarrhea : denies: Hematuria PD PAST MEDICAL HISTORY - Past Medical History Cardiovascular: None Endocrine/Autoimmune: Type 2 diabetes : Kidney stones - Past Surgical History Past Surgical History: No - Present Medications Home Medications: Ambulatory Orders Medication Instructions Recorded Confirmed Efavirenz [Sustiva] 600 mg PO DAILY 10/14/13 03/07/21 Atorvastatin [Lipitor] 20 mg PO DAILY 03/07/21 03/07/21 Bictegrav/Emtricit/Tenofov Ala 1 tab PO DAILY 03/07/21 03/07/21 [Biktarvy 50-200-25 mg Tablet] Clindamycin Phosphate [Cleocin T] 60 ml TP BID PRN 03/07/21 03/07/21 Sertraline [Zoloft] 25 mg PO DAILY 03/07/21 03/07/21 buPROPion [Wellbutrin Sr] 100 mg PO DAILY 03/07/21 03/07/21 metFORMIN [Glucophage] 500 mg PO TID 03/07/21 03/07/21 Amox/Clav 875/125 [Augmentin 1 tablet PO Q12H 10 Days #20 tablet 03/08/21 875/125 Tab] Ketorolac [Toradol] 10 mg PO Q6H PRN #15 tablet 03/08/21 Mupirocin 2% Oint [Bactroban 2% 1 applic TOP BID #22 gm 10/19/21 Oint] cephALEXin [Keflex] 500 mg PO Q6H #28 cap 10/19/21 - Allergies Allergies/Adverse Reactions: Allergies Allergy/AdvReac Type Severity Reaction Status Date / Time codeine Allergy Intermediate sleepy Verified 10/26/21 17:15 NSAIDS (Non-Steroidal AdvReac Intermediate Rash Verified 10/26/21 17:15 Anti-Inflamma Penicillins AdvReac Intermediate Rash Verified 10/26/21 17:15 - Social History Does the pt smoke?: No Smoking Status: Never smoker Does the pt drink ETOH?: No Does the pt have substance abuse?: No - Immunizations Immunizations are current?: No Immunizations: TDAP >10years/unknown - POLST Patient has POLST: No PD ED PE NORMAL - Vitals Vital signs reviewed: Yes - General General: Alert and oriented X 3, No acute distress, Well developed/nourished - Neck Neck: Supple, no meningeal sign - Cardiac Cardiac: RRR, No murmur - Respiratory Respiratory: No respiratory distress, Clear bilaterally - Abdomen Abdomen: Normal bowel sounds, Soft, Non tender, Non distended - Back Back: No CVA TTP - Derm Derm: Normal color, Warm and dry Results - Vitals Vitals: Oxygen O2 Source Room air - Labs Labs: Laboratory Tests 10/26/21 10/26/21 10/26/21 17:22 17:22 17:22 WBC 8.8 RBC 5.30 Hgb 15.5 Hct 45.8 MCV 86.4 MCH 29.2 MCHC 33.8 RDW 12.9 Plt Count 238 MPV 8.8 Neut # (Auto) 4.3 Lymph # (Auto) 3.2 Rhea # (Auto) 0.7 Eos # (Auto) 0.5 Baso # (Auto) 0.1 Absolute Nucleated RBC 0.00 Nucleated RBC % 0.0 PT 10.7 INR 1.0 Sodium 135 Potassium 3.9 Chloride 99 L Carbon Dioxide 26 Anion Gap 10.0 BUN 15 Creatinine 1.1 Estimated GFR (MDRD) 69 L Glucose 384 H Calcium 8.7 Total Bilirubin 0.5 AST 23 ALT 25 Alkaline Phosphatase 84 Total Protein 7.3 Albumin 4.1 Globulin 3.2 Albumin/Globulin Ratio 1.3 Lipase 39 PD MEDICAL DECISION MAKING - ED course Complexity details: reviewed results, re-evaluated patient, considered differential, d/w patient ED course: presents with dark red/maroon stool with clots x 2 days. He has normal vital signs and does not endorse symptoms that would be concerning in the setting of GIB (such as abdominal pain, vomiting, fever, diarrhea, change in caliber of stool). Blood work is normal except for hyperglycemia. He is given 5 unites regular insulin SQ and eventually dishcarged. He was to be discharged sooner but he had many questions about both potential contributors to GI bleed, as well as unrelated medical questions such as about his recent toe infection and his blood sugars. I endeavored to address as many of these questions as feasible but due to heavy patient census in ED at the time, I had to see other patients before being able to eventually return and answer any pertinent (to the presentation) questions he had. Departure - Departure Disposition: 01 Home, Self Care Clinical Impression: Lower gastrointestinal bleeding Condition: Good Instructions: ED Hematochezia Stable Comments: Your blood tests tonight are unremarkable except for high blood sugar. As we discussed, the high blood sugar is not causing your gastrointestinal bleeding. You can follow up with your primary care provider for the high blood sugar as well as your other concerns such as the blood in stool and the concern for foot infection. At this time, the bleeding has not affected your red blood cell levels and appears to be a stable problem for which you can be seen in the outpatient setting. Discharge Date/Time: 10/27/21 00:18
[2021-10-26] MEDS ORDERED: INSULIN REGULAR HUMAN 100 UNIT/1 ML 10 ML MDV SUBQ STA (19:51)
[2021-10-26 23:07] VITALS: BP 121/74
== END 2021-10-27 00:18 | disposition home or self-care (01) ==
LOC: ED 16:51
DX: K92.2 Gastrointestinal hemorrhage, unspecified (principal); E11.9 Type 2 diabetes mellitus without complications; Z79.84 Long term (current) use of oral hypoglycemic drugs
CPT/HCPCS: 36415; 80053; 83690; 85025; 85610; 99282; 99283; J1815